=== PATIENT | female | born 1980 | race Caucasian/White ===

== ENCOUNTER 2017-12-04 17:17 | Emergency (ER) | payer SELFPAY, BC, MEDICAID | END 2017-12-04 17:31 | disposition left against medical advice (07) | LOC: E/R 17:17 | DX: Z53.21 Procedure and treatment not carried out due to patient leaving prior to being seen by health care provider (principal) ==

== ENCOUNTER 2018-05-07 09:27 | Emergency (ER) | payer MEDICAID | END 2018-05-07 10:25 | disposition home or self-care (01) | LOC: FTE 09:27 | DX: J20.9 Acute bronchitis, unspecified (principal) | CPT/HCPCS: 71045; 99283-25 ==